=== PATIENT | female | born 1990 | race Caucasian/White ===

== ENCOUNTER 2019-01-13 22:21 | Inpatient (IN) | payer MEDICAID ==
[~2019-01-13] VITALS: Ht 165.1 cm; Wt 96.6 kg
[2019-01-14 00:08] LABS: Urine Bacteria FEW /hpf (None Seen); Urine Blood Negative /uL (Negative); Urine Hyaline Cast FEW /lpf (0 - 2); Urine Mucus FEW (None Seen); Urine Specific Gravity 1.024 (1.001-1.035); Urine WBC 24 /hpf (0 - 5)
[2019-01-14 01:00] LABS: Eosinophils # (auto) 0.1 uL; Eosinophils % (auto) 0.3 % (0.0-7.0); Hemoglobin 12.4 g/dL (12.2-16.2)
[2019-01-14] MEDS ORDERED: ONDANSETRON HCL 4 MG/2 ML VIAL IV ONE (01:00)
[2019-01-14] MEDS ORDERED: SODIUM CHLORIDE 0.9% 1,000 ML IV ONE (01:00)
[2019-01-14] MEDS ORDERED: MORPHINE SULFATE 4 MG/ML SYR/VIAL IV ONE (01:00)
[2019-01-14 01:02] LABS: Basophils # (auto) 0 uL; Basophils % (auto) 0.2 % (0.0-2.0); Lymphocytes % (auto) 9.2 % (10.0-50.0); Mean Corpuscular Hgb Conc. 34.4 g/dL (32.0-36.0); Mean Corpuscular Volume 78.6 fL (80.0-100.0); Monocytes # (auto) 1.5 uL; Monocytes % (auto) 6.6 % (0.0-12.0); Neutrophils # (auto) 18.5 uL; Neutrophils % (auto) 83.7 % (37.0-80.0); Platelet Count (auto) 428 10^3/uL (140-450); Red Blood Cells 4.58 10^6/uL (4.0-5.20); White Blood Cell 22.1 10^3/uL (4.4-10.8)
[2019-01-14 01:21] LABS: BUN/Creatinine Ratio 10.6; Calcium 8.8 mg/dL (8.5-10.1); Potassium 3.9 mmol/L (3.5-5.1)
[2019-01-14 01:24] LABS: Bilirubin, Total 0.3 mg/dL (0.2-1.0); Total Protein 8.4 g/dL (6.4-8.2)
[2019-01-14] MEDS ORDERED: metroNIDAZOLE 500MG/100ML 100 ML IV ONE (02:30)
[2019-01-14] MEDS ORDERED: cefTRIAXone 1GM/50ML D5W 50 ML IV ONE (02:30)
[2019-01-14] MEDS ORDERED: SODIUM CHLORIDE 0.9% 500 ML IV ONE (02:45)
[2019-01-14] MEDS ORDERED: TEMAZEPAM 15 MG CAP PO PRN (02:45)
[2019-01-14] MEDS ORDERED: ACETAMINOPHEN 325 MG TAB PO PRN (02:45)
--- NOTE | 2019-01-14 05:17 | NUR ---
MS admit from ER ASMITA TABOR admitted to tele/MS after SBAR received. Patient oriented to Anju Marie, primary RN, unit, room, bed, and unit policies regarding patient care and visiting hours. Patient weighed by bedscale and encouraged to call if they need something. All questions and concerns addressed, patient verbalized understanding. Note:
[2019-01-14 05:19] VITALS: BP 104/69
[2019-01-14] MEDS: HYDROcodone-ACET 5/325MG TAB PO PRN ×2 (05:44→15:10)
[2019-01-14] MEDS: SODIUM CHLORIDE 0.9% 1,000 ML IV SCH ×2 (06:32→16:09)
--- NOTE | 2019-01-14 06:32 | NUR ---
MRSA SWAB COLLECTED AND SENT. CONTINUE CARE.
--- NOTE | 2019-01-14 07:50 | NUR ---
Opening Shift Note Assumed care of patient, awake and alert. No S/S of distress/SOB or pain. Instructed on POC and to call for assist PRN, will continue to monitor for changes Q1hr and PRN.
[2019-01-14] MEDS: cefTRIAXone 1GM/50ML D5W 50 ML IV SCH (08:28)
[2019-01-14] MEDS: metroNIDAZOLE 500MG/100ML 100 ML IV SCH ×2 (08:28→16:09)
[2019-01-14 09:00] VITALS: BP 97/51
[2019-01-14] MEDS: MORPHINE SULFATE 4 MG/ML SYR/VIAL IV PRN ×2 (09:19→21:41)
[2019-01-14] MEDS: FAMOTIDINE 20 MG TAB PO SCH ×2 (09:19→21:40)
[2019-01-14 13:00] VITALS: BP 116/66
[2019-01-14 17:00] VITALS: BP 113/61
[2019-01-14] MEDS: ONDANSETRON HCL 4 MG/2 ML VIAL IV PRN ×2 (17:46→20:28)
[2019-01-14] MEDS ORDERED: GADOPENTETATE DIMEGLUMINE (10MMOL/20 ML) VIAL IV ONE (19:04)
--- NOTE | 2019-01-14 19:14 | NUR ---
RECEIVED PATIENT FROM DAY SHIFT RN. PATIENT RESTING IN BED. NO S/S OF DISTRESS NOTED. DENIED ABD PAIN FOR NOW. PATIENT IS NPO FOR ABD MRI AND WAITING FOR IT. POC INSTRUCTED AND ENCOURAGED PATIENT TO CALL FOR INTERIOR PANELER IF NEEDED. BED IN LOWEST POSITION WITH SIDE RAILS UP X 2. CALL AGUAYO WITHIN REACH. ALARM ON. CONTINUE TO MONITOR FOR CHANGES Q1H AND PRN.
--- NOTE | 2019-01-14 19:15 | NUR ---
PATIENT OFF FLOOR FOR MRI VIA WHEELCHAIR ESCORTED BY SIZE PAINTER. CONTINUE TO MONITOR.
--- NOTE | 2019-01-14 20:28 | NUR ---
PATIENT BACK TO FLOOR VIA WHEELCHAIR, PER BROKERAGE MANAGER, PATIENT ONLY FINISHED HALF PART OF MRI, AND WILL COME TO PICK PATIENT UP TOMORROW MORNING FOR THE REST OF THE TEST. PATIENT C/O HEADACHE @ 08/22. MEDICATED PATIENT FOR ELLIOTT AND NAUSEA. CONTINUE TO MONITOR.
--- NOTE | 2019-01-14 21:41 | NUR ---
PATIENT C/O ABD PAIN @ 11/22. MEDICATED PATIENT ORDERED. CONTINUE TO MONITOR.
[2019-01-14 22:00] VITALS: BP 115/72
[2019-01-15] MEDS: SODIUM CHLORIDE 0.9% 1,000 ML IV SCH ×2 (01:16→18:07)
--- NOTE | 2019-01-15 02:33 | NUR ---
PATIENT SLEEPING. NO S/S OF DISTRESS AND PAIN NOTED. CONTINUE TO MONITOR.
[2019-01-15] MEDS: HYDROcodone-ACET 5/325MG TAB PO PRN ×2 (05:01→16:31)
--- NOTE | 2019-01-15 05:02 | NUR ---
PATIENT C/O ABD PAIN @ 12/23. MEDICATED PATIENT ORDERED. HOT PACK APPLIED. CONTINUE TO MONITOR.
[2019-01-15 06:08] VITALS: BP 114/72
--- NOTE | 2019-01-15 06:10 | NUR ---
PATIENT SLEEPING. NO S/S OF DISTRESS AND PAIN NOTED. REINFORCED NPO NOW FOR CT LATER. PATIENT VERBALIZED UNDERSTANDING. DIRECTOR BIOLOGY AWARE. CONTINUE TO MONITOR.
[2019-01-15 07:06] LABS: Basophils # (auto) 0 uL; Basophils % (auto) 0.3 % (0.0-2.0); Eosinophils # (auto) 0.1 uL
[2019-01-15 07:09] LABS: Eosinophils % (auto) 0.6 % (0.0-7.0); Hematocrit 33.3 % (36.0-46.0); Lymphocytes # (auto) 1.4 uL; Lymphocytes % (auto) 9.4 % (10.0-50.0); Mean Corpuscular Hemoglobin 26.3 pg (28.0-32.0); Mean Corpuscular Volume 79.7 fL (80.0-100.0); Monocytes # (auto) 1.2 uL; Monocytes % (auto) 7.7 % (0.0-12.0); Neutrophils # (auto) 12.3 uL; Platelet Count (auto) 362 10^3/uL (140-450); Red Blood Cells 4.18 10^6/uL (4.0-5.20); Red Cell Distribution Width 13.8 % (11.8-14.3)
[2019-01-15 07:26] LABS: BUN/Creatinine Ratio 9.5; Calcium 8.3 mg/dL (8.5-10.1); Potassium 3.8 mmol/L (3.5-5.1)
--- NOTE | 2019-01-15 07:55 | NUR ---
Opening Shift Note Assumed care of patient, asleep but easily aroused. No S/S of distress/SOB or pain. Instructed on POC and to call for assist PRN, will continue to monitor for changes Q1hr and PRN.
[2019-01-15] MEDS: cefTRIAXone 1GM/50ML D5W 50 ML IV SCH (08:17)
[2019-01-15] MEDS: metroNIDAZOLE 500MG/100ML 100 ML IV SCH ×3 (08:17→16:30)
[2019-01-15 08:49] VITALS: BP 90/56
[2019-01-15] MEDS: ONDANSETRON HCL 4 MG/2 ML VIAL IV PRN ×2 (09:00→16:31)
[2019-01-15] MEDS: MORPHINE SULFATE 4 MG/ML SYR/VIAL IV PRN ×2 (09:00→23:15)
--- NOTE | 2019-01-15 09:19 | NUR ---
Off Unit Patient left unit in wheelchair with fabrication technician for MRI/MRCP.
--- NOTE | 2019-01-15 09:50 | NUR ---
On Unit Patient is back in bed after having MRI/MRCP done.
[2019-01-15] MEDS: FAMOTIDINE 20 MG TAB PO SCH ×2 (10:20→21:52)
[2019-01-15 13:25] VITALS: BP 106/59
[2019-01-15 17:00] VITALS: BP 102/71
[2019-01-15] MEDS: PIPERACILLIN-TAZOB 3.375GM 100 ML IV SCH (18:07)
--- NOTE | 2019-01-15 19:40 | NUR ---
Opening Shift Note Assumed care of patient. Patient was asleep upon entering the room but was easily arousable. No S/S of distress/SOB or pain. Instructed on POC and to call for assist PRN, will continue to monitor for changes Q1hr and PRN.
[2019-01-15 22:00] VITALS: BP 110/70
--- NOTE | 2019-01-15 23:00 | NUR ---
PAIN ASSESSMENT The patient complains of abdominal pain with a severity of 8/10. Patient requested medication. Will treat with PRN pain medication.
[2019-01-16] MEDS: metroNIDAZOLE 500MG/100ML 100 ML IV SCH ×3 (00:11→16:19)
[2019-01-16] MEDS: PIPERACILLIN-TAZOB 3.375GM 100 ML IV SCH ×4 (00:11→17:56)
[2019-01-16] MEDS: HYDROcodone-ACET 5/325MG TAB PO PRN ×2 (04:35→18:23)
[2019-01-16 04:50] VITALS: BP 106/61
[2019-01-16 06:49] LABS: Basophils # (auto) 0 uL; Basophils % (auto) 0.3 % (0.0-2.0); Eosinophils # (auto) 0.2 uL; Eosinophils % (auto) 1.2 % (0.0-7.0); Hematocrit 35.1 % (36.0-46.0); Hemoglobin 11.6 g/dL (12.2-16.2); Lymphocytes # (auto) 1.5 uL; Mean Corpuscular Hemoglobin 26.4 pg (28.0-32.0); Mean Corpuscular Hgb Conc. 33.1 g/dL (32.0-36.0); Mean Corpuscular Volume 79.7 fL (80.0-100.0); Monocytes # (auto) 0.8 uL; Monocytes % (auto) 6.4 % (0.0-12.0); Neutrophils # (auto) 10.1 uL; Neutrophils % (auto) 80.1 % (37.0-80.0); Platelet Count (auto) 415 10^3/uL (140-450); Red Blood Cells 4.41 10^6/uL (4.0-5.20); White Blood Cell 12.6 10^3/uL (4.4-10.8)
[2019-01-16 07:10] LABS: Albumin 2.5 g/dL (3.4-5.0); Calcium 8.7 mg/dL (8.5-10.1); Potassium 3.9 mmol/L (3.5-5.1)
[2019-01-16 07:15] LABS: BUN/Creatinine Ratio 6.1; Bilirubin, Total 0.3 mg/dL (0.2-1.0); Total Protein 7.2 g/dL (6.4-8.2)
[2019-01-16] MEDS: SODIUM CHLORIDE 0.9% 1,000 ML IV SCH ×2 (08:56→22:03)
[2019-01-16 09:00] VITALS: BP 111/69
[2019-01-16] MEDS: FAMOTIDINE 20 MG TAB PO SCH ×2 (09:11→22:35)
--- NOTE | 2019-01-16 09:50 | NUR ---
PT C/O REDNESS AND ITCHY TO LATERAL ABDOMEN AREA. NO ANAPHYLACTIC SYMPTOMS PRESENT, VITAL SIGNS STABLE. REPORTED FINDINGS TO DR. BLAKE. PER MD TO GIVE BENADRYL PRE INFUSION, BUT TO GIVE FLAGYL ABX. PT IN AGREEMENT. CALL LIGHT WITHIN REACH. WILL CONTINUE TO MONITOR.
[2019-01-16] MEDS: diphenhdrAMINE HCL 25 MG CAP PO PRN ×2 (10:30→18:40)
--- NOTE | 2019-01-16 11:00 | NUR ---
PT REPORTS ITCHY TO ABDOMEN SUBSIDED. CALL LIGHT WITHIN REACH.
[2019-01-16 12:45] VITALS: BP 112/66
--- NOTE | 2019-01-16 13:40 | NUR ---
DR. BURRIS IN TO SEE PT. PT IN AGREEMENT WITH PLAN OF CARE.
--- NOTE | 2019-01-16 13:40 | NUR ---
PER MD KERNS; PT OK TO BE ON REGULAR DIET
[2019-01-16] MEDS: MORPHINE SULFATE 4 MG/ML SYR/VIAL IV PRN (16:20)
[2019-01-16 16:22] VITALS: BP 110/68
--- NOTE | 2019-01-16 18:40 | NUR ---
PT AWAKE, ALERT, ORIENTEDx4 EFFORTLESS BREATHING ON ROOM AIR. IV INFUSING WELL TO RAC#20. BED LOCKED AND IN LOWEST POSITION, CALL LIGHT WITHIN REACH. FAMILY AT BEDSIDE.
[2019-01-16 21:30] VITALS: BP 96/55
[2019-01-17] MEDS: PIPERACILLIN-TAZOB 3.375GM 100 ML IV SCH ×4 (01:18→17:57)
[2019-01-17] MEDS: metroNIDAZOLE 500MG/100ML 100 ML IV SCH ×4 (01:18→23:17)
[2019-01-17] MEDS: MORPHINE SULFATE 4 MG/ML SYR/VIAL IV PRN ×2 (02:08→11:58)
[2019-01-17 05:00] VITALS: BP 98/60
[2019-01-17 05:39] LABS: Basophils # (auto) 0.1 uL; Hemoglobin 11.7 g/dL (12.2-16.2); Lymphocytes # (auto) 2.2 uL; White Blood Cell 11.4 10^3/uL (4.4-10.8)
[2019-01-17 05:40] LABS: Basophils % (auto) 0.5 % (0.0-2.0); Eosinophils # (auto) 0.3 uL; Eosinophils % (auto) 2.6 % (0.0-7.0); Hematocrit 36.1 % (36.0-46.0); Lymphocytes % (auto) 19.3 % (10.0-50.0); Mean Corpuscular Hemoglobin 25.9 pg (28.0-32.0); Mean Corpuscular Hgb Conc. 32.5 g/dL (32.0-36.0); Mean Corpuscular Volume 79.8 fL (80.0-100.0); Monocytes # (auto) 0.9 uL; Monocytes % (auto) 8.1 % (0.0-12.0); Neutrophils % (auto) 69.5 % (37.0-80.0); Nucleated Red Blood Cells % 0.1 %; Platelet Count (auto) 486 10^3/uL (140-450); Red Blood Cells 4.52 10^6/uL (4.0-5.20); Red Cell Distribution Width 14.1 % (11.8-14.3)
[2019-01-17 05:56] LABS: Albumin 2.5 g/dL (3.4-5.0); BUN/Creatinine Ratio 9.1; Calcium 8.4 mg/dL (8.5-10.1)
[2019-01-17 05:58] LABS: Bilirubin, Total 0.3 mg/dL (0.2-1.0); Total Protein 7.1 g/dL (6.4-8.2)
[2019-01-17] MEDS: HYDROcodone-ACET 5/325MG TAB PO PRN ×2 (06:00→18:10)
[2019-01-17] MEDS: FAMOTIDINE 20 MG TAB PO SCH ×2 (08:57→20:28)
[2019-01-17 08:59] VITALS: BP 93/59
[2019-01-17] MEDS: SODIUM CHLORIDE 0.9% 1,000 ML IV SCH (11:33)
--- NOTE | 2019-01-17 11:44 | NUR ---
DR. BLAKE IN TO SEE PT. PT IN AGREEMENT WITH PLAN OF CARE.
[2019-01-17] MEDS ORDERED: DOCUSATE SOD 100 MG CAP PO PRN ×2 (11:45→12:30)
[2019-01-17 13:00] VITALS: BP 103/68
[2019-01-17] MEDS: diphenhdrAMINE HCL 25 MG CAP PO PRN ×2 (13:02→20:28)
--- NOTE | 2019-01-17 14:09 | NUR ---
NUTRITION ASSESSMENT NOTES Please refer to link notes of nutrition screen form filed under the intervention section of the plan of care for further details. Est. Needs: 1550 kcal to 1850 kcal (25-30 kcal/kgBW), 62 gms to 81 gms pro (1.0-1.3 gms/kgBW d/t mod hypoalbuminemia). Will continue to monitor pertinent labs and reassess nutrient need prn Thank you. Addendum: 01/17/19 at [address] Amended: Links added.
[2019-01-17 17:07] VITALS: BP 95/58
--- NOTE | 2019-01-17 19:50 | NUR ---
Opening Shift Note Assumed care of patient, awake and alert, oriented x 4, on room air with even and unlabored respirations. No S/S of distress or SOB Patient independently turns in bed and ambulates. Bed low locked position with side rails up x 2 and call light within reach. Instructed on POC and to call for assist PRN, will continue to monitor for changes Q1hr and PRN.
[2019-01-17 22:00] VITALS: BP 100/63
[2019-01-18] MEDS: SODIUM CHLORIDE 0.9% 1,000 ML IV SCH ×2 (00:21→11:55)
[2019-01-18] MEDS: PIPERACILLIN-TAZOB 3.375GM 100 ML IV SCH ×3 (00:21→11:55)
[2019-01-18] MEDS: HYDROcodone-ACET 5/325MG TAB PO PRN (01:54)
[2019-01-18] MEDS: diphenhdrAMINE HCL 25 MG CAP PO PRN (04:56)
[2019-01-18 05:28] VITALS: BP 98/56
[2019-01-18 06:03] LABS: Basophils # (auto) 0.1 uL; Eosinophils # (auto) 0.3 uL; Hemoglobin 11.4 g/dL (12.2-16.2); Neutrophils # (auto) 6.5 uL; Red Cell Distribution Width 14.1 % (11.8-14.3)
[2019-01-18 06:05] LABS: Basophils % (auto) 0.5 % (0.0-2.0); Eosinophils % (auto) 3.1 % (0.0-7.0); Hematocrit 34.2 % (36.0-46.0); Lymphocytes # (auto) 1.9 uL; Lymphocytes % (auto) 19.9 % (10.0-50.0); Mean Corpuscular Hemoglobin 26.6 pg (28.0-32.0); Mean Corpuscular Hgb Conc. 33.4 g/dL (32.0-36.0); Mean Corpuscular Volume 79.7 fL (80.0-100.0); Monocytes # (auto) 0.8 uL; Neutrophils % (auto) 68.5 % (37.0-80.0); Platelet Count (auto) 432 10^3/uL (140-450); Red Blood Cells 4.29 10^6/uL (4.0-5.20); White Blood Cell 9.6 10^3/uL (4.4-10.8)
[2019-01-18 06:24] LABS: Calcium 8.4 mg/dL (8.5-10.1)
--- NOTE | 2019-01-18 07:03 | NUR ---
Closing note patient resting in bed with even and unlabored respirations, no s/s of distress. Endorsed care to day shift RN.
--- NOTE | 2019-01-18 07:10 | NUR ---
PT SLEEPING AT MOMENT. EFFORTLESS BREATHING ON ROOM AIR. NO S/S OF DISTRESS AT MOMENT. IV TO RAC#20 INFUSING WELL, PATENT. BED LOCKED AND IN LOWEST POSITION, CALL LIGHT WITHIN REACH. WILL CONTINUE TO MONITOR.
[2019-01-18] MEDS: FAMOTIDINE 20 MG TAB PO SCH (08:33)
[2019-01-18] MEDS: metroNIDAZOLE 500MG/100ML 100 ML IV SCH (08:33)
[2019-01-18 09:00] VITALS: BP 93/62
--- NOTE | 2019-01-18 11:05 | NUR ---
DR. KERNS PAGED FOR CA-125 RESULT. VOICEMAIL BOX FULL AT MOMENT. DR. BLAKE AWARE OF RESULT.
--- NOTE | 2019-01-18 11:17 | NUR ---
SPOKE TO DR. 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 EMMANUELLE HANDLEY MADE AWARE OF CA-125 RESULT; STATES SHE KNOWS THE PT AND THAT SHE IS CLEARED FOR DISCHARGE WITH ABX PRESCRIPTIONS BY DR. LEXY TSE AND ELLYN. DR. HANDLEY RECOMMENDATIONS IS FOR PT TO FOLLOW UP WITH DR. KERNS OUTPATIENT.
[2019-01-18 13:00] VITALS: BP 108/74
--- NOTE | 2019-01-18 13:01 | NUR ---
DR. BLAKE PAGED AND MESSAGE LEFT REGARDING DISCHARGE ORDERS NEED.
--- NOTE | 2019-01-18 14:20 | NUR ---
DISCHARGE INSTRUCTIONS PROVIDED TO PT. PT VERBALIZED UNDERSTANDING FOR PRESCRIPTION ORDERS AND FOLLOW UP APPOINTMENT WITH PRIMARY CARE PROVIDER AND WATER PURIFIER (DR. KERNS) PT HAS RESOURCE CONTACT INFORMATION. EDUCATIONAL MATERIAL PROVIDED, QUESTIONS AND CONCERNS ADDRESSED. IV CATHETER DC'D, CATHETER INTACT, NO PHLEBITIS. PT AMBULATED OUT OF UNIT ACCOMPANIED BY FAMILY.
== END 2019-01-18 14:30 | disposition home or self-care (01) | DRG 531 ==
LOC: ER 22:27 → OVERFLOW 22:28 → CENTRAL 01-14 04:48
PROVIDERS: ADMIT Nurse Practitioner; ATTEND Internal Medicine
DX: N70.93 Salpingitis and oophoritis, unspecified (principal); R64 Cachexia; E88.09 Other disorders of plasma-protein metabolism, not elsewhere classified; N39.0 Urinary tract infection, site not specified; D64.9 Anemia, unspecified; K52.9 Noninfective gastroenteritis and colitis, unspecified; E66.9 Obesity, unspecified; K80.20 Calculus of gallbladder without cholecystitis without obstruction; N83.9 Noninflammatory disorder of ovary, fallopian tube and broad ligament, unspecified; Z80.0 Family history of malignant neoplasm of digestive organs; Z80.1 Family history of malignant neoplasm of trachea, bronchus and lung; Z80.3 Family history of malignant neoplasm of breast; Z68.35 Body mass index [BMI] 35.0-35.9, adult
CPT/HCPCS: 36415; 73723; 74176; 74181; 76856; 80048; 80053; 81001; 81025; 83605; 83690; 85025; 86304; 87040; 87081; 87086; 96365; 96368; 96375; G0378; J0696; J2405; J2543; J3490

== ENCOUNTER 2021-04-21 14:12 | Emergency (ER) | payer SELFPAY ==
[~2021-04-21] VITALS: Ht 165.1 cm; Wt 83.9 kg
[2021-04-21 16:15] VITALS: BP 105/64
[2021-04-21] MEDS ORDERED: IBUPROFEN 800 MG TAB PO ONE (16:15)
[2021-04-21] MEDS ORDERED: IBUP800T27 PO (16:17)
== END 2021-04-21 16:30 | disposition home or self-care (01) ==
LOC: ER 14:12
DX: S93.402A Sprain of unspecified ligament of left ankle, initial encounter (principal); W19.XXXA Unspecified fall, initial encounter; Y93.89 Activity, other specified; Y92.89 Other specified places as the place of occurrence of the external cause; Y99.8 Other external cause status
CPT/HCPCS: 73610

== ENCOUNTER 2022-06-15 17:14 | Emergency (ER) | payer MEDICAID ==
[~2022-06-15 17:14] MED LIST: IBUP800T27 PO
== END 2022-06-15 20:59 | disposition left against medical advice (07) ==
LOC: ER 17:16
DX: R51.9 Headache, unspecified (principal); Z53.21 Procedure and treatment not carried out due to patient leaving prior to being seen by health care provider

== ENCOUNTER 2022-09-29 18:30 | Emergency (ER) | payer MEDICAID ==
[~2022-09-29] VITALS: Ht 165.1 cm; Wt 88.7 kg
[~2022-09-29 18:30] MED LIST changes: +IBUP-1456 PO; -IBUP800T27 PO
[2022-09-29 21:09] VITALS: BP 115/75
[2022-09-29] MEDS ORDERED: IPRATROPIUM BROM 0.5 MG/2.5ML INH SOL NEB ONE (21:30)
[2022-09-29] MEDS ORDERED: ALBUTEROL SULF 2.5 MG/0.5ML(0.5%) NEB SOLN NEB ONE (21:30)
[2022-09-29] MEDS ORDERED: ALBUAER3 IN (21:59)
[2022-09-29] MEDS ORDERED: PRED20TA2 PO (21:59)
== END 2022-09-29 22:03 | disposition home or self-care (01) ==
LOC: ER 18:30
DX: R06.02 Shortness of breath (principal)
CPT/HCPCS: 71046; 94640; 99283; J7644

== ENCOUNTER 2022-12-23 13:02 | Emergency (ER) | payer MEDICAID ==
[~2022-12-23] VITALS: Ht 165.1 cm; Wt 85.0 kg
[~2022-12-23 13:02] MED LIST changes: +ALBUAER3 IN; +PRED20TA2 PO
[2022-12-23 14:30] VITALS: BP 126/85; PULSE 108; RESP 18; TEMP 97.7; O2SAT 99
[2022-12-23] MEDS ORDERED: CEPH250C2 PO (15:09)
== END 2022-12-23 15:10 | disposition home or self-care (01) ==
LOC: ER 13:02
DX: S80.861A Insect bite (nonvenomous), right lower leg, initial encounter (principal); L03.115 Cellulitis of right lower limb; I10 Essential (primary) hypertension; F17.210 Nicotine dependence, cigarettes, uncomplicated; Z79.1 Long term (current) use of non-steroidal anti-inflammatories (NSAID); Z79.899 Other long term (current) drug therapy; W57.XXXA Bitten or stung by nonvenomous insect and other nonvenomous arthropods, initial encounter; Y93.89 Activity, other specified; Y92.89 Other specified places as the place of occurrence of the external cause; Y99.8 Other external cause status

== ENCOUNTER 2023-10-26 21:54 | Emergency (ER) | payer MEDICAID ==
[~2023-10-26] VITALS: Ht 165.1 cm; Wt 84.3 kg
[~2023-10-26 21:54] MED LIST changes: +CEPH250C2 PO
[2023-10-26 22:10] VITALS: BP 115/89; PULSE 86; RESP 18; O2SAT 100
== END 2023-10-27 00:12 | disposition left against medical advice (07) ==
LOC: ER 21:54
DX: S61.432A Puncture wound without foreign body of left hand, initial encounter (principal); Z53.21 Procedure and treatment not carried out due to patient leaving prior to being seen by health care provider; W54.0XXA Bitten by dog, initial encounter; Y93.89 Activity, other specified; Y92.89 Other specified places as the place of occurrence of the external cause; Y99.8 Other external cause status
CPT/HCPCS: 73130

== ENCOUNTER 2024-01-17 07:00 | Emergency (ER) | payer MEDICAID ==
[~2024-01-17] VITALS: Ht 165.1 cm; Wt 79.7 kg
[2024-01-17 08:11] VITALS: BP 99/80; PULSE 119; RESP 18; TEMP 98.3; O2SAT 98
[2024-01-17] MEDS ORDERED: CEPH500C PO (08:14)
[2024-01-17] MEDS ORDERED: IBUP-1454 PO (08:14)
== END 2024-01-17 08:32 | disposition home or self-care (01) ==
LOC: ER 07:00
DX: S00.86XA Insect bite (nonvenomous) of other part of head, initial encounter (principal); F17.210 Nicotine dependence, cigarettes, uncomplicated; F12.10 Cannabis abuse, uncomplicated; I10 Essential (primary) hypertension; Z79.1 Long term (current) use of non-steroidal anti-inflammatories (NSAID); Z79.52 Long term (current) use of systemic steroids; W57.XXXA Bitten or stung by nonvenomous insect and other nonvenomous arthropods, initial encounter; Y93.89 Activity, other specified; Y92.89 Other specified places as the place of occurrence of the external cause; Y99.8 Other external cause status